=== PATIENT | female | born 1960 ===

== ENCOUNTER 2018-04-01 05:05 | Day surgery (SDC) | payer OTHER ==
[~2018-04-01 05:05] MED LIST: ATIVAN0.5 M1; CIPRO500 MG PO; FIORIC; FIORICET 50-301 EACH; GABAPENTIN300 MG PO; LEVSIN/SL0.125 MG PO; METOPROLOL ER-1 EAC2; METRONIDAZOLE500 MG PO; NEURONTIN300 MG; NORVASC2.5 M1; PAMELOR10 MG PO; PEPCID40 MG PO; PERCOCET 5-3251 EACH PO; PROTONIX40 MG PO; TRILIPIX135 MG; TRILIPIX135 MG PO; TROMBONEX CAPS1 EACH PO
== END 2018-04-01 09:45 | disposition home or self-care (01) ==
LOC: AMB-ENDOS 05:05
DX: D12.3 Benign neoplasm of transverse colon (principal)

== ENCOUNTER 2018-11-05 07:39 | Outpatient (CLI) | payer OTHER ==
[~2018-11-05] VITALS: Ht 152.4 cm; Wt 76.2 kg
== END 2018-11-05 07:50 | disposition home or self-care (01) ==
LOC: OFIC 805 07:39
DX: K21.9 Gastro-esophageal reflux disease without esophagitis (principal); J31.2 Chronic pharyngitis